=== PATIENT | female | born 1965 | race Caucasian/White ===

== ENCOUNTER 2016-11-04 13:13 | Emergency (ER) | payer BC ==
[2016-11-04 13:33] VITALS: BP 146/93
[2016-11-04] MEDS ORDERED: Sodium Chloride 0.9% 1000 ML 1,000 ML IV SCH (13:45)
--- NOTE | 2016-11-04 14:03 | ERPHSYRPT ---
- History of Present Illness Time Seen by Provider: 11/04/16 13:30 Historian: patient Patient Subjective Stated Complaint: right lower quad abd pain since this morning. took motrin without relief. denies any other symptoms Triage Nursing Assessment: ambulated to room holding right abd. skin w/d, color normal, resp easy. abd soft, tender rlq. normal bowel sounds. Physician History: CC: abd pain hx: 50 y/o patient of Dr Audra Pedro with RLQ abd pain since last night. Was able to eat breakfast. No fever, N/V. Normal urination. Pain moderate and aching in nature. No hx of this in the past. No prior abd surgeries. She declines pain medication. She states wants to get tests to see what is wrong. Quality: aching Abdominal Pain Onset Location: RLQ Severity of Pain-Max: moderate Severity of Pain-Current: moderate Allergies/Adverse Reactions: erythromycin base Allergy (Verified 11/04/16 13:27) metoclopramide [From Reglan] Allergy (Verified 11/04/16 13:27) Sulfa (Sulfonamide Antibiotics) Allergy (Verified 11/04/16 13:27) Home Medications: Ascorbic Acid 500 mg [Vitamin C 500 MG] 500 mg PO DAILY 11/04/16 [History] Cholecalciferol (Vitamin D3) [Vitamin D] 2,000 unit PO DAILY 11/04/16 [History] Cinnamon Bark [Cinnamon] 500 mg PO DAILY 11/04/16 [History] Cyanocobalamin/Folic Acid [Vitamin X87-Wuamq Acid Tablet] 1 each PO DAILY [History] Lysine 1,000 mg PO DAILY 11/04/16 [History] Hx Tetanus, Diphtheria Vaccination/Date Given: Yes (2 yrs ago) Hx Influenza Vaccination/Date Given: No Hx Pneumococcal Vaccination/Date Given: No - Review of Systems Constitutional: Malaise, No Fever, No Chills Eyes: No Symptoms Ears, Nose, & Throat: No Symptoms Respiratory: No Cough, No Dyspnea Cardiac: No Chest Pain Abdominal/Gastrointestinal: Abdominal Pain, No Nausea, No Vomiting, No Diarrhea Genitourinary Symptoms: No Dysuria, No Hematuria Skin: No Rash Neurological: No Headache All Other Systems: Reviewed and Negative - Past Medical History Pertinent Past Medical History: Yes Neurological History: Migraines - Past Surgical History Past Surgical History: Yes Musculoskeletal: Orthopedic Surgery Other Surgical History: shoulder surgery, right and left and knee surgery - Social History Smoking Status: Never smoker Exposure to second hand smoke: No Drug Use: none Patient Lives Alone: No - Nursing Vital Signs Nursing Vital Signs: Initial Vital Signs Temperature 97.2 F Temperature Source Oral Pulse Rate 74 Respiratory Rate 22 Blood Pressure [Right Arm] 146/93 Pain Intensity 4 - Physical Exam General Appearance: alert Eye Exam: PERRL/EOMI Ears, Nose, Throat Exam: moist mucous membranes Neck Exam: normal inspection, non-tender, supple Respiratory Exam: normal breath sounds, lungs clear Cardiovascular Exam: regular rate/rhythm Gastrointestinal/Abdomen Exam: soft, tenderness (right mid abd, no mass) Back Exam: normal inspection, normal range of motion Extremity Exam: normal inspection, normal range of motion Neurologic Exam: alert, oriented x 3, cooperative, sensation nml, No motor deficits Skin Exam: warm, dry, No rash SpO2 Interpretation: normal SpO2: 99 Oxygen Delivery: Room Air - Course Nursing assessment & vital signs reviewed: Yes - CT Exams abd/pelvis CT Interpretation: Tele-radiologist Report (normal appendix, splenic enlargement with cyst, pancreatic cyst, renal cysts, ovarian cyst.) Ordered Tests: Active Orders 24 hr Category Date Time Status Clean Catch Urine Specimen STAT Care 11/04/16 13:38 Active IV Insertion STAT Care 11/04/16 13:38 Active ABDOMEN AND PELVIS W CONTRAST [CT] Stat Exams 11/04/16 13:57 Completed CBC W DIFF Stat Lab 11/04/16 14:02 Completed CMP Stat Lab 11/04/16 14:02 Completed LIPASE Stat Lab 11/04/16 14:02 Completed UA W/ MICROSCOPIC Stat Lab 11/04/16 14:02 Completed Medication Summary Generic Name Dose Route Start Last Admin Trade Name Freq PRN Reason Stop Dose Admin Sodium Chloride 1,000 mls @ 100 mls/hr 11/04/16 13:45 11/04/16 14:33 Sodium Chloride 0.9% 1000 Ml IV 12/04/16 13:44 100 mls/hr .Q10H DAYRON Administration Lab/Rad Data: Laboratory Result Diagrams 11/04/16 14:02 11/04/16 14:02 Laboratory Results 11/04/16 11/04/16 11/04/16 Range/Units 14:02 14:02 14:02 WBC 7.5 (4.0-10.5) K/mm3 RBC 4.70 (4.1-5.4) M/mm3 Hgb 13.8 (12.0-16.0) gm/dl Hct 41.5 (35-47) % MCV 88.3 (78-100) fl MCH 29.4 (26-32) pg MCHC 33.3 (32-36) g/dl RDW 13.8 (11.5-14.0) % Plt Count 230 (150-450) K/mm3 MPV 10.9 H (6-9.5) fl Gran % 61.7 (36.0-66.0) % Lymphocytes % 27.0 (24.0-44.0) % Monocytes % 7.9 (0.0-12.0) % Eosinophils % 3.1 (0.00-5.0) % Basophils % 0.3 (0.0-0.4) % Basophils # 0.02 (0-0.4) Sodium 141 (136-145) mEq/L Potassium 3.7 (3.5-5.1) mEq/L Chloride 106 (98-107) mEq/L Carbon Dioxide 26.8 (21-32) mEq/L Anion Gap 12.3 (5-15) MEQ/L BUN 21 H (9-20) mg/dL Creatinine 1.00 (0.55-1.30) mg/dl Estimated GFR > 60 ML/MIN Glucose 94 (70-110) MG/DL Calcium 9.1 (8.5-10.1) mg/dL Total Bilirubin 0.5 (0.2-1.0) mg/dL AST 18 (15-37) U/L ALT 29 (12-78) U/L Alkaline Phosphatase 100 (46-116) U/L Serum Total Protein 6.8 (6.4-8.2) gm/dL Albumin 4.3 (3.4-5.0) g/dL Lipase 182 (73-393) U/L Ur Collection Type CCMS Urine Color YELLOW (YELLOW) Urine Appearance CLEAR (CLEAR) Urine pH 7.0 (5-6) Ur Specific [place] 1.015 (1.005-1.025) Urine Protein NEGATIVE (Negative) Urine Glucose (UA) NEGATIVE (NEGATIVE) mg/dL Urine Ketones NEGATIVE (NEGATIVE) Urine Nitrite NEGATIVE (NEGATIVE) Urine Bilirubin NEGATIVE (NEGATIVE) Urine Urobilinogen 1 (0-1) mg/dL Urine WBC (Auto) TRACE (NEGATIVE) Urine RBC (Auto) NEGATIVE (0-5) Renaldo/ul Urine Microscopic RBC 0-2 (0-2) /HPF Urine Microscopic WBC 0-2 (0-5) /HPF Ur Epithelial Cells FEW (FEW) /HPF Amorphous Crystals FEW (NEGATIVE) /HPF Urine Bacteria RARE (NEGATIVE) /HPF Specimen Received 11-04-16 1408 - Progress Progress Note: 11/04/16 14:[address] to rule out appendicitis. 11/04/16 15:00 Explained test results with pt. Advised needs ovarian sonogram to assess cyst and needs to consider repeat pancreas CT in 6 months. Advised follow up with Dr Audra Pedro next week to discuss. Counseled pt/family regarding: lab results, diagnosis, need for follow-up, rad results - Departure Time of Disposition: 15:00 Departure Disposition: Home Clinical Impression: Left ovarian cyst, Pancreatic cyst Abdominal pain Qualifiers: Abdominal location: right lower quadrant Qualified Code(s): R10.31 - Right lower quadrant pain Condition: Stable Critical Care Time: No Referrals: SUSSY PEDRO [Primary Care Provider] - Instructions: Abdominal Pain-Adult Additional Instructions: ABDOMINAL PAIN 1. There are several different causes for abdominal pain, some of which may not be able to be identified on initial examination. 2. The important thing to remember is that bodily functions can change in a short period of time. If you notice any of the following symptoms, return to the emergency department or consult your doctor immediately: A. Worsening pain or no improvement in the next 12 hours. B. Increasing, severe abdominal pain C. Blood in stool D. Black stools E. Persistent vomiting F. Fever or chills or other symptoms you need to follow up with Dr Pedro to get ovarian sonogram and consider repeat CT pancreas in 6 months. Prescriptions: Famotidine 20 mg [Pepcid 20 MG] 1 tab PO BID #30 tablet
[2016-11-04 14:05] LABS: BASOPHIL % 0.3 % (0.0-0.4); Eosinophil % 3.1 % (0.00-5.0); Granulocytes % 61.7 % (36.0-66.0); Mean Cell Volume 88.3 fl (78-100); Mean Corpuscular Hemoglobin 29.4 pg (26-32); Mean Platelet Volume 10.9 fl (6-9.5); Monocytes % 7.9 % (0.0-12.0); Platelet Count 230 K/mm3 (150-450); Red Cell Distribution Width 13.8 % (11.5-14.0); White Blood Count 7.5 K/mm3 (4.0-10.5)
[2016-11-04 14:14] LABS: Bacteria RARE /HPF (NEGATIVE); COMPLETE URINE MICROSCOPIC? YES; Collection Type CCMS; Epithelial Cells FEW /HPF (FEW); WBC 0-2 /HPF (0-5)
[2016-11-04 14:28] LABS: ALBUMIN 4.3 g/dL (3.4-5.0); ALKALINE PHOSPHATASE 100 U/L (46-116); ANION GAP 12.3 MEQ/L (5-15); BILIRUBIN,TOTAL 0.5 mg/dL (0.2-1.0); BLOOD UREA NITROGEN 21 mg/dL (9-20); CHLORIDE 106 mEq/L (98-107); Carbon Dioxide 26.8 mEq/L (21-32); Glucose 94 MG/DL (70-110); LIPASE 182 U/L (73-393); Potassium 3.7 mEq/L (3.5-5.1); SGOT/AST 18 U/L (15-37); SGPT/ALT 29 U/L (12-78); SODIUM 141 mEq/L (136-145); Total Protein 6.8 gm/dL (6.4-8.2)
[2016-11-04] MEDS ORDERED: Sodium Chloride 0.9% 1000 ML 1,000 ML ONE (14:31)
[2016-11-04 14:36] VITALS: PULSE 74
[2016-11-04 14:47] VITALS: O2SAT 99
--- NOTE | 2016-11-04 14:54 | XRAY ---
Indication: Right lower quadrant pain. Multiple contiguous axial images obtained through the abdomen and pelvis using 80 cc Isovue 370 contrast only. Comparison: None Lung bases demonstrate minimal bibasilar dependent atelectasis. Heart is not enlarged. Noncontrasted stomach and bowel loops appear nonobstructed. There is moderate scattered colonic fecal debris throughout. Normal appendix. No free fluid/air. 4.2 cm left ovary cyst. Spleen is enlarged measuring 14.1 cm in greatest axial dimension with a 2 cm splenic cyst. 2.2 cm right mid renal and 5 number left mid renal cortical cysts. Tiny 4 mm pancreatic body cyst. Remaining liver, gallbladder, pancreas spleen, adrenal glands, kidneys, ureters, bladder, uterus, and aorta appear unremarkable. No pathologic retroperitoneal lymphadenopathy. Osseous structures intact with mild left SI degenerative changes. Impression: 1. Fecal stasis without obstruction. 2. 4.2 cm left ovary cyst. 3. Splenomegaly with 2 cm cyst. 4. Bilateral renal cysts. 5. Tiny pancreatic body cyst probably benign. Comparison to older studies would be of benefit. If not available consider six-month follow-up. CT DI 20.54
== END 2016-11-04 15:12 ==
LOC: ED 13:13
DX: R10.31 Right lower quadrant pain (principal); N83.202 Unspecified ovarian cyst, left side; K86.2 Cyst of pancreas
CPT/HCPCS: 36000; 36415; 74177; 80053; 81000; 83690; 85025; 96360; 99284

== ENCOUNTER 2022-09-02 14:43 | Emergency (ER) | payer BC, OTHER ==
[2022-09-02 15:00] VITALS: O2SAT 98
[2022-09-02] MEDS ORDERED: PROVENTIL 2.5 MG/3 ML NEB IH ONE ×2 (15:21→15:30)
[2022-09-02] MEDS ORDERED: TORAdol 30 mg Injection IV ONE (15:22)
[2022-09-02] MEDS ORDERED: TORAdol 30 mg Injection ONE (15:33)
[2022-09-02 15:45] LABS: Absolute Neutrophil Ct (ANC) 5.43 x10^3/uL (1.4-6.9); BASOPHIL % 0.3 % (0.0-0.4); Basophil (Absolute #) 0.03 x10^3/uL (0-0.4); Eosinophil % 0.9 % (0.00-5.0); Eosinophil (Absolute #) 0.08 x10^3/uL (0-0.5); Hematocrit 41.2 % (35-47); Hemoglobin 13.3 g/dL (12.0-16.0); IMMATURE GRAN # 0.01 x10^3u/L (0.00-0.03); IMMATURE GRAN % 0.1 % (0.00-0.4); Lymphocyte (Absolute #) 2.74 x10^3/uL (1.0-4.6); Lymphocytes % 30.8 % (24.0-44.0); Mean Cell Volume 90.5 fL (78-100); Mean Corpuscular Hemoglobin 29.2 pg (26-32); Mean Corpuscular Hgb Concent. 32.3 g/dL (32-36); Monocyte (Absolute #) 0.61 x10^3/uL (0.0-1.3); Monocytes % 6.9 % (0.0-12.0); Platelet Count 231 x10^3/uL (150-450); Red Blood Count 4.55 x10^6/uL (4.1-5.4); Red Cell Distribution Width 13.1 % (11.5-14.0); White Blood Count 8.9 x10^3/uL (4.0-10.5)
[2022-09-02 16:01] LABS: ALBUMIN 4.6 g/dL (3.5-5.0); ALKALINE PHOSPHATASE 140 U/L (38-126); ANION GAP 9.8 MEQ/L (5-15); BLOOD UREA NITROGEN 18 mg/dL (7-17); CHLORIDE 106 mmol/L (98-107); Calcium 9.1 mg/dL (8.4-10.2); Carbon Dioxide 23 mmol/L (22-30); Creatinine 1 0.95 mg/dL (0.52-1.04); EST GLOMERULAR FILTRATION RATE > 60.0 ML/MIN; Glucose 89 mg/dL (74-106); Potassium 3.8 mmol/L (3.5-5.1); SGOT/AST 29 U/L (14-36); SGPT/ALT 28 U/L (0-35); SODIUM 135 mmol/L (137-145); Total Protein 7.2 g/dL (6.3-8.2)
[2022-09-02 16:31] VITALS: PULSE 70
--- NOTE | 2022-09-02 16:56 | ERPHSYRPT ---
- History of Present Illness Source: patient, EMS Exam Limitations: no limitations Patient Subjective Stated Complaint: Pt states "I was doing a shakedown and found a bugins bottle and I took the cap off and I smelt it, I also spilled some on my shirt and I got lightheaded and tired and had a headache and my chest was hurting and I thought I needed to get checked out." Triage Nursing Assessment: Pt presented alert and oriented X 3, skin pwd. pt ambulates with an upright steady gait, able to speak in clear full sentences. pt resting comfortably on the bed. 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 Pt inhaled it after she sprayed it. It is unknown what was in the spray bottle. Pt states that her throat became sore and that she became short of breath and actually had a syncopal episode. She currently has a headache. She was decontaminated upon arrival per EMS. Timing/Duration: other (Before arrival) Modifying Factors: Improves With: nothing Associated Symptoms: denies symptoms, nausea, shortness of breath, headaches Allergies/Adverse Reactions: erythromycin base Allergy (Verified 11/04/16 13:27) metoclopramide [From Reglan] Allergy (Verified 11/04/16 13:27) Sulfa (Sulfonamide Antibiotics) Allergy (Verified 11/04/16 13:27) Home Medications: Ascorbic Acid 500 mg [Vitamin C 500 MG] 500 mg PO DAILY 11/04/16 [History] Cholecalciferol (Vitamin D3) [Vitamin D] 2,000 unit PO DAILY 11/04/16 [History] Cyanocobalamin/Folic Acid [Vitamin I39-Ywlje Acid Tablet] 1 each PO DAILY 11/04/16 [History] Lysine 1,000 mg PO DAILY 11/04/16 [History] Escitalopram Oxalate 20 mg PO DAILY 09/02/22 [History] Methylphenidate HCl [Methylphenidate ER] 20 mg PO DAILY 09/02/22 [History] Topiramate 100 mg PO DAILY 09/02/22 [History] modafiniL [Modafinil] 200 mg PO DAILY 09/02/22 [History] Hx Tetanus, Diphtheria Vaccination/Date Given: Yes (2 yrs ago) Hx Influenza Vaccination/Date Given: No Hx Pneumococcal Vaccination/Date Given: No Immunizations Up to Date: Yes Travel Risk - International Travel Have you traveled outside of the country in past 3 weeks: No - Coronavirus Screening Are you exhibiting any of the following symptoms?: No Close contact with a COVID-19 positive Pt in past 14-21 Days: No - Vaccine Status Have you recieved a Covid-19 vaccination: Yes Advertising Editor: Moderna - Vaccination Dates Date of 2cond Vaccination (if applicable): 2020 - Review of Systems Constitutional: No Symptoms Eyes: No Symptoms Ears, Nose, & Throat: No Symptoms Respiratory: No Symptoms, Dyspnea Cardiac: No Symptoms Abdominal/Gastrointestinal: No Symptoms, Nausea, Vomiting Genitourinary Symptoms: No Symptoms Musculoskeletal: No Symptoms Skin: No Symptoms Neurological: No Symptoms, Headache Psychological: No Symptoms Endocrine: No Symptoms Hematologic/Lymphatic: No Symptoms Immunological/Allergic: No Symptoms - Past Medical History Pertinent Past Medical History: Yes Neurological History: Migraines Cardiac History: Hypertension Respiratory History: No Pertinent History Endocrine Medical History: No Pertinent History Musculoskeletal History: Osteoarthritis Other Medical History: NARCOLEPSY - Past Surgical History Past Surgical History: Yes Musculoskeletal: Orthopedic Surgery Other Surgical History: r shoulder surgery, right and left and knee surgery. right bicep - Social History Smoking Status: Never smoker Exposure to second hand smoke: No Drug Use: none Patient Lives Alone: No - Nursing Vital Signs Nursing Vital Signs: Initial Vital Signs Temperature 98.8 F 09/02/22 14:51 Pulse Rate 74 09/02/22 14:51 Respiratory Rate 20 09/02/22 14:51 Blood Pressure 162/104 09/02/22 14:51 O2 Sat by Pulse Oximetry 98 09/02/22 14:51 Pain Scale Pain Intensity 0 Hypertensive - Physical Exam General Appearance: no apparent distress Eye Exam: PERRL/EOMI, eyes nml inspection Ears, Nose, Throat Exam: normal ENT inspection, TMs normal, pharynx normal, moist mucous membranes Neck Exam: normal inspection, non-tender, supple, full range of motion, No meningismus, No mass, No Brudzinski, No Kernig's Respiratory Exam: normal breath sounds, lungs clear, airway intact, No respiratory distress Cardiovascular Exam: regular rate/rhythm, normal heart sounds, normal peripheral pulses, capillary refill <2 sec, No murmur Gastrointestinal/Abdomen Exam: soft, normal bowel sounds Back Exam: normal inspection, normal range of motion Extremity Exam: normal inspection, normal range of motion Neurologic Exam: alert, oriented x 3, cooperative, business banker II-XII nml as tested, normal mood/affect, nml cerebellar function, nml station & gait, sensation nml Skin Exam: normal color, warm, dry Lymphatic Exam: No adenopathy SpO2 Interpretation: normal SpO2: 98 O2 Delivery: Room Air - Course Nursing assessment & vital signs reviewed: Yes EKG Interpreted by Me: RATE (NSR/Rate 68/Normal QT-QTc/No acute ST segment changes/Normal Twaves) Ordered Tests: Active Orders 24 hr Category Date Time Status EKG-ER Only STAT Care 09/02/22 15:21 Completed CBC W DIFF Stat Lab 09/02/22 15:44 Completed CMP Stat Lab 09/02/22 15:44 Completed TROPONIN Q4H Lab 09/02/22 15:44 Completed Respiratory Therapy Assessment DAILY RT 09/02/22 17:00 Completed Medication Summary Discontinued Medications Generic Name Dose Route Start Last Admin Trade Name Марина PRN Reason Stop Dose Admin Albuterol Sulfate 2.5 mg 09/02/22 15:21 09/02/22 15:30 Albuterol Sulfate 2.5 Mg/3 Ml Neb IH 09/02/22 15:22 2.5 mg STAT ONE Administration Albuterol Sulfate Confirm 09/02/22 15:30 Albuterol Sulfate 2.5 Mg/3 Ml Neb Administered 09/02/22 15:31 Dose 2.5 mg IH .STK-MED ONE Ketorolac Tromethamine 15 mg 09/02/22 15:22 09/02/22 15:34 Ketorolac Tromethamine 30 Mg/Ml Inj IV 09/02/22 15:23 15 mg STAT ONE Administration Ketorolac Tromethamine Confirm 09/02/22 15:33 Ketorolac Tromethamine 30 Mg/Ml Inj Administered 09/02/22 15:34 Dose 30 mg .ROUTE .STK-MED ONE Lab/Rad Data: Laboratory Result Diagrams 09/02/22 15:44 09/02/22 15:44 Laboratory Results 09/02/22 09/02/22 09/02/22 Range/Units 15:44 15:44 15:44 WBC 8.9 (4.0-10.5) x10^3/uL RBC 4.55 (4.1-5.4) x10^6/uL Hgb 13.3 (12.0-16.0) g/dL Hct 41.2 (35-47) % MCV 90.5 (78-100) fL MCH 29.2 (26-32) pg MCHC 32.3 (32-36) g/dL RDW 13.1 (11.5-14.0) % Plt Count 231 (150-450) x10^3/uL MPV 10.0 (7.5-11.0) fL Gran % 61.0 (36.0-66.0) % Immature Gran % (Auto) 0.1 (0.00-0.4) % Nucleat RBC Rel Count 0.0 (0.00-0.1) % Eos # (Auto) 0.08 (0-0.5) x10^3/uL Immature Gran # (Auto) 0.01 (0.00-0.03) x10^3u/L Absolute Lymphs (auto) 2.74 (1.0-4.6) x10^3/uL Absolute Monos (auto) 0.61 (0.0-1.3) x10^3/uL Absolute Nucleated RBC 0.00 (0.00-0.01) x10^3u/L Lymphocytes % 30.8 (24.0-44.0) % Monocytes % 6.9 (0.0-12.0) % Eosinophils % 0.9 (0.00-5.0) % Basophils % 0.3 (0.0-0.4) % Absolute Granulocytes 5.43 (1.4-6.9) x10^3/uL Basophils # 0.03 (0-0.4) x10^3/uL Sodium 135 L (137-145) mmol/L Potassium 3.8 (3.5-5.1) mmol/L Chloride 106 (98-107) mmol/L Carbon Dioxide 23 (22-30) mmol/L Anion Gap 9.8 (5-15) MEQ/L BUN 18 H (7-17) mg/dL Creatinine 0.95 (0.52-1.04) mg/dL Estimated GFR > 60.0 ML/MIN Glucose 89 (74-106) mg/dL Calcium 9.1 (8.4-10.2) mg/dL Total Bilirubin 0.40 (0.2-1.3) mg/dL AST 29 (14-36) U/L ALT 28 (0-35) U/L Alkaline Phosphatase 140 H (38-126) U/L Troponin I < 0.012 (0.000-0.034) ng/mL Serum Total Protein 7.2 (6.3-8.2) g/dL Albumin 4.6 (3.5-5.0) g/dL - Progress Progress: improved Progress Note: 09/02/22 17:01 Nursing note and vital signs reviewed Additional history through EMS EKG and lab results reviewed and shared w pt No housing or food insecurities noted Pt's headache improved w IV Toradol States that dyspnea improved w albuterol neb No evidence of ectopy, focal weakness, or respiratory distress in ER 09/02/22 17:04 Counseled pt/family regarding: lab results, diagnosis, need for follow-up Medical Desision Making - Independent Historian Additional History obtained from: EMS - Diagnostic Testing Diagnostic Testing: Diagnostic tests were ordered,analyzed, and reviewed by me and used in my medical decision making for this patient. Radiologic studies (if ordered) were read by me initially then discussed with the radiologist . - Risk of complications Low Risk: Low risk of morbidity from additional dx testing or treatment - Departure Departure Disposition: Home Clinical Impression: Inhalation injury Condition: Stable Critical Care Time: No Referrals: BLOSSOM BRIZUELA MD [Primary Care Provider] - Follow up/PCP as directed Instructions: Chemical Ingestion (DC) Additional Instructions: Use your albuterol inhaler every 4 hours as needed Return to ER for any new signs/symptoms Follow up as needed
[2022-09-02 17:10] VITALS: BP 160/88
== END 2022-09-02 17:17 | disposition home or self-care (01) ==
LOC: ED 14:43
DX: T59.91XA Toxic effect of unspecified gases, fumes and vapors, accidental (unintentional), initial encounter (principal); R06.02 Shortness of breath; Y92.143 Cell of prison as the place of occurrence of the external cause; Y99.0 Civilian activity done for income or pay; J02.9 Acute pharyngitis, unspecified; R55 Syncope and collapse; R51.9 Headache, unspecified; I10 Essential (primary) hypertension; Z79.899 Other long term (current) drug therapy
CPT/HCPCS: 36415; 80053; 84484; 85025; 93005; 94640; 99283; J1885; J7609; A9270-GY

== ENCOUNTER 2023-04-30 01:59 | Emergency (ER) | payer BC ==
[2023-04-30 02:21] VITALS: RESP 18; TEMP 97; O2SAT 98
[2023-04-30] MEDS ORDERED: TORAdol 30 mg Injection IM ONE (02:25)
[2023-04-30] MEDS ORDERED: Norflex 60 MG/2 ML IM ONE (02:25)
[2023-04-30] MEDS ORDERED: TORAdol 30 mg Injection ONE (02:30)
[2023-04-30] MEDS ORDERED: Norflex 60 MG/2 ML ONE (02:30)
--- NOTE | 2023-04-30 02:30 | ERPHSYRPT ---
- History of Present Illness Time Seen by Provider: 04/30/23 02:26 Source: patient Exam Limitations: no limitations Patient Subjective Stated Complaint: pt states that she was at her son's house and went to step off the step and twisted her ankle. pt states that she was seen in a er and was told that her foot was just sprained. pt states that the pain is worse Triage Nursing Assessment: pt came into the er via wheelchair; pt transferred self to cot; c/o rt foot pain; mild swelling present to rt ankle; no bruising present to rt foot; good ROM to rt foot; strong rt pedal pulse; good cap refill to rt foot; abrasion present to dorsal rt foot; no respiratory distress present; hypertension Physician History: pt states that she was at her son's house and went to step off the step and twisted her ankle. pt states that she was seen in a er and was told that her foot was just sprained. pt states that the pain is worse Method of Injury: fell Occurred: yesterday Quality: constant Severity of Pain-Max: moderate Severity of Pain-Current: moderate Lower Extremities Pain: foot: right Modifying Factors: Improves With: nothing Associated Symptoms: unable to bear weight Allergies/Adverse Reactions: erythromycin base Allergy (Verified 04/30/23 02:06) metoclopramide [From Reglan] Allergy (Verified 04/30/23 02:06) Sulfa (Sulfonamide Antibiotics) Allergy (Verified 04/30/23 02:06) Home Medications: Cholecalciferol (Vitamin D3) [Vitamin D] 2,000 unit PO DAILY 11/04/16 [History] Cyanocobalamin/Folic Acid [Vitamin W06-Jwtzp Acid Tablet] 1 each PO DAILY 10/22 11/07 [History] Lysine 1,000 mg PO DAILY 11/04/16 [History] Escitalopram Oxalate 20 mg PO DAILY 09/02/22 [History] Methylphenidate HCl [Methylphenidate ER] 20 mg PO DAILY 09/02/22 [History] Topiramate 100 mg PO DAILY 09/02/22 [History] Amlodipine Besylate [Norvasc] 5 mg PO DAILY 04/30/23 [History] Solriamfetol HCl [Sunosi] 150 mg PO DAILY 04/30/23 [History] Hx Tetanus, Diphtheria Vaccination/Date Given: Yes (2014) Hx Influenza Vaccination/Date Given: Yes (2021) Hx Pneumococcal Vaccination/Date Given: Yes (2021) Travel Risk - International Travel Have you traveled outside of the country in past 3 weeks: No - Coronavirus Screening Are you exhibiting any of the following symptoms?: No Close contact with a COVID-19 positive Pt in past 14-21 Days: No - Vaccine Status Have you recieved a Covid-19 vaccination: 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 - Vaccination Dates Date of 2cond Vaccination (if applicable): 2020 - Review of Systems Constitutional: No Symptoms Eyes: No Symptoms Ears, Nose, & Throat: No Symptoms Respiratory: No Symptoms Cardiac: No Symptoms Abdominal/Gastrointestinal: No Symptoms Genitourinary Symptoms: No Symptoms Musculoskeletal: Fall, Joint Pain (right foot arch) - Past Medical History Pertinent Past Medical History: Yes Neurological History: Migraines Cardiac History: Hypertension Respiratory History: No Pertinent History Endocrine Medical History: No Pertinent History Musculoskeletal History: Osteoarthritis GI Medical History: GERD Psycho-Social History: Depression Other Medical History: NARCOLEPSY - Past Surgical History Past Surgical History: Yes Musculoskeletal: Orthopedic Surgery Other Surgical History: r shoulder surgery, right and left and knee surgery. right bicep - Social History Smoking Status: Never smoker Exposure to second hand smoke: No Drug Use: none Patient Lives Alone: No - Nursing Vital Signs Nursing Vital Signs: Initial Vital Signs Pulse Rate 62 04/30/23 02:06 Blood Pressure 155/99 04/30/23 02:06 O2 Sat by Pulse Oximetry 97 04/30/23 02:06 Pain Scale Pain Intensity 6 - Physical Exam General Appearance: no apparent distress Eyes, Ears, Nose, Throat Exam: normal ENT inspection Neck Exam: normal inspection Cardiovascular/Respiratory Exam: chest non-tender Gastrointestinal/Abdominal Exam: non-tender Back Exam: normal inspection Hips Exam: bilateral: non-tender Legs Exam: bilateral leg: non-tender Knees Exam: bilateral knee: non-tender Ankle Exam: right ankle: limited range of motion, pain, soft tissue tenderness Foot Exam: right foot: pain, soft tissue tenderness Neuro/Tendon Exam: normal sensation, normal motor functions, normal tendon functions Mental Status Exam: alert, oriented x 3 Skin Exam: normal color SpO2 Interpretation: normal SpO2: 98 O2 Delivery: Room Air Procedures - Splinting Time of Procedure: 02:28 Location of Splint: Right, Foot Type of Splint: Walking Boot/Shoe Splint Applied By: ED Nurse Pre-Proc Neuro Vasc Exam: normal - Course Nursing assessment & vital signs reviewed: Yes Ordered Tests: Active Orders 24 hr Category Date Time Status Splint STAT Care 04/30/23 02:25 Active - Progress Progress: improved, pain not gone completely Counseled pt/family regarding: diagnosis, need for follow-up - Departure Departure Disposition: Home Clinical Impression: Right foot sprain Qualifiers: Encounter type: subsequent encounter Qualified Code(s): S93.601D - Unspecified sprain of right foot, subsequent encounter Condition: Stable Critical Care Time: No Referrals: BLOSSOM BRIZUELA MD [Primary Care Provider] - Follow up/PCP as directed Instructions: Contusion (DC), Foot Sprain (DC) Additional Instructions: Discharge/Care Plan SEVERIANO BOJORQUEZ was seen on 04/30/23 in the Emergency Room. The patient was counseled regarding Diagnosis,Lab results, Imaging studies, need for follow up and when to return to the Emergency Room. Prescriptions given: Discharge Note I have spoken with the patient and/or caregivers. I have explained the patient's condition, diagnosis and treatment plan based on the information available to me at this time. I have answered the patient's and/or caregiver's questions and addressed any concerns. The patient and/or caregivers have as good understanding of the patient's diagnosis, condition and treatment plan as can be expected at this point. The vital signs have been stable. The patient's condition is stable and appropriate for discharge from the emergency department. The patient will pursue further outpatient evaluation with the primary care physician or other designated or consulting physician as outlined in the discharge instructions. The patient and/or caregivers are agreeable to this plan of care and follow-up instructions have been explained in detail. The patient and/or caregivers have received these instruction. The patient/and or caregivers are aware that any significant change in condition or worsening of symptoms should prompt an immediate return to this or the closest emergency department or call 911. SEVERIANO BOJORQUEZ was seen on 04/30/23 n the Emergency Room. At that time you were treated for an emergent condition, during your visit Laboratory, Radiology and/or other procedures may have been ordered. It is very important that you follow-up with your Primary Care Physician BLOSSOM BRIZUELA within the next 24-48 hours to review your Emergency Room visit and the final results of testing that was ordered. Some test results such as Urine Cultures, Blood Cultures, and other cultures if ordered will not be finalized for 24-48 hours. If you do not have a Primary Care Provider please call the medical records department at [phone] ext [phone] to obtain a copy of your results or you may sign into our patient portal to obtain these results by visiting us @ [email or web address] and completing the following steps: 1. Click on the Patient Portal link 2. Click the Patient Self Enrollment Link to complete the enrollment form and entering your 3. Once the enrollment form is completed you will receive an email with a temporary ID and password at the email address you provided. 4. Next choose a user name and password. Your user name must be at least 4 characters long and your password must be at least 4 characters long. 5. Choose a security question from the list and provide your answer to the question. If you already have signed into the Health Portal you may access your Health Care Information 13/02 by the following steps: 1. Login to our website @ [email or web address] 2. Enter your original user name and password. FAQS The [facility] Health Portal is an online tool that contains your Lab Results, Radiology Reports, Visit History, Discharge Instructions and Health Summary Lab and Radiology Results will not be available for 72 hours on the portal. The Portal is a secure site, passwords are encryted and URLs are re-written so they cannot be copied and pasted. You and authorized family members are the only ones who can access your Portal. Also there is a timeout feature that protects your information if you leave the Portal page open. If you have technical difficulty please use the Contact Us link on the page this will allow you to submit any questions you have regarding the Portal or you may contact the Medical Record Department at [phone]. Prescriptions: Naproxen 375 mg [Naprosyn 375 mg] 375 mg PO Q8H #30 tablet
[2023-04-30 03:32] VITALS: BP 142/78; PULSE 74
== END 2023-04-30 03:25 | disposition home or self-care (01) ==
LOC: ED 01:59
DX: S93.601A Unspecified sprain of right foot, initial encounter (principal); X50.0XXA Overexertion from strenuous movement or load, initial encounter; I10 Essential (primary) hypertension; Z79.899 Other long term (current) drug therapy
CPT/HCPCS: 96372; 99283; J1885; J2360; L4386

== ENCOUNTER 2023-08-03 10:44 | Emergency (ER) | payer BC ==
[2023-08-03] MEDS ORDERED: Sodium Chloride 0.9% 1000 ML 0 ML ONE (11:01)
[2023-08-03] MEDS ORDERED: SUBLIMAZE 100 MCG/2 ML IV ONE ×2 (11:11→14:34)
[2023-08-03] MEDS ORDERED: PROTONIX 40 MG IV IV ONE ×2 (11:11→11:46)
[2023-08-03] MEDS ORDERED: Sodium Chloride 0.9% 1000 ML 1,000 ML IV STA ×2 (11:11→12:04)
[2023-08-03] MEDS ORDERED: Zofran 4 MG/2 ML VIAL IV ONE (11:11)
[2023-08-03 11:12] VITALS: TEMP 98
[2023-08-03 11:19] LABS: Absolute Neutrophil Ct (ANC) 19.03 x10^3/uL (1.4-6.9); BASOPHIL % 0.2 % (0.0-0.4); Basophil (Absolute #) 0.04 x10^3/uL (0-0.4); Eosinophil % 0.2 % (0.00-5.0); Eosinophil (Absolute #) 0.04 x10^3/uL (0-0.5); Hematocrit 38.8 % (35-47); Hemoglobin 13.1 g/dL (12.0-16.0); IMMATURE GRAN # 0.24 x10^3u/L (0.00-0.03); Lymphocyte (Absolute #) 1.27 x10^3/uL (1.0-4.6); Lymphocytes % 5.5 % (24.0-44.0); Mean Cell Volume 83.6 fL (78-100); Mean Corpuscular Hemoglobin 28.2 pg (26-32); Mean Corpuscular Hgb Concent. 33.8 g/dL (32-36); Mean Platelet Volume 10.8 fL (7.5-11.0); Monocyte (Absolute #) 2.28 x10^3/uL (0.0-1.3); Neutrophil % 83.1 % (36.0-66.0); Platelet Count 241 x10^3/uL (150-450); Red Blood Count 4.64 x10^6/uL (4.1-5.4); Red Cell Distribution Width 12.8 % (11.5-14.0); White Blood Count 22.9 x10^3/uL (4.0-10.5)
--- NOTE | 2023-08-03 11:20 | ERPHSYRPT ---
- History of Present Illness Time Seen by Provider: 08/03/23 11:11 Historian: patient Exam Limitations: no limitations Patient Subjective Stated Complaint: pt c/o of nancy abd pain since 8 days ago with vomiting Triage Nursing Assessment: Pt brought self to the ER, a-fib with RVR, rates pain as 8/10, pt c/o of abd pain, back pain that radiates up her neck, denies chest pain, skin n/w/d, vomiting, denies diarrhea, has not had a bowel movement in 8 days but states that she has barely eaten anything, denies difficulty with breathing, pulses are irregular, walked to the ER room with a stable gait Physician History: 57 years old female in the ER with chief complaint of generalized abdominal pain more in the periumbilical area with radiation/wrapping around to the back 8/10 intensity for the last 8 to 10 days with associated multiple episodes of nonprojectile, nonbilious vomiting with inability to hold much down. Denies any diarrhea or constipation. Patient reports she has decreased urine output despite drinking frequently. She feels weak fatigued tired and dehydrated. Denies any chest pain or palpitations. Patient's heart rate is in 140s and 160s but denies any chest pressure or pain or difficulty breathing. Denies any known sick contact. EKG is atrial fibrillation at rate in 140s. Allergies/Adverse Reactions: erythromycin base Allergy (Verified 08/03/23 11:12) metoclopramide [From Reglan] Allergy (Verified 08/03/23 11:12) Sulfa (Sulfonamide Antibiotics) Allergy (Verified 08/03/23 11:12) Home Medications: Cholecalciferol (Vitamin D3) [Vitamin D] 2,000 unit PO DAILY 11/04/16 [History] Cyanocobalamin/Folic Acid [Vitamin E88-Fclja Acid Tablet] 1 each PO DAILY 11/04/16 [History] Lysine 1,000 mg PO DAILY 11/04/16 [History] Escitalopram Oxalate 20 mg PO DAILY 09/02/22 [History] Methylphenidate HCl [Methylphenidate ER] 20 mg PO DAILY 09/02/22 [History] Topiramate 100 mg PO DAILY 09/02/22 [History] Amlodipine Besylate [Norvasc] 5 mg PO DAILY 04/30/23 [History] Solriamfetol HCl [Sunosi] 150 mg PO DAILY 04/30/23 [History] Hx Tetanus, Diphtheria Vaccination/Date Given: Yes (2014) Hx Influenza Vaccination/Date Given: Yes (2021) Hx Pneumococcal Vaccination/Date Given: Yes (2021) Travel Risk - International Travel Have you traveled outside of the country in past 3 weeks: No - Coronavirus Screening Are you exhibiting any of the following symptoms?: Yes Symptoms: Vomiting/Diarrhea Close contact with a COVID-19 positive Pt in past 14-21 Days: No - Vaccine Status Have you recieved a Covid-19 vaccination: Yes Founding Partner: Moderna - Vaccination Dates Date of 2cond Vaccination (if applicable): 2020 - Review of Systems Constitutional: Fatigue, Weakness Eyes: No Symptoms Ears, Nose, & Throat: No Symptoms Respiratory: No Symptoms Cardiac: No Symptoms Abdominal/Gastrointestinal: Abdominal Pain, Nausea, Vomiting Genitourinary Symptoms: No Symptoms Musculoskeletal: Back Pain Skin: No Symptoms Neurological: No Symptoms Psychological: No Symptoms Hematologic/Lymphatic: No Symptoms Immunological/Allergic: No Symptoms - Past Medical History Pertinent Past Medical History: Yes Neurological History: Migraines Cardiac History: Hypertension Respiratory History: No Pertinent History Endocrine Medical History: No Pertinent History Musculoskeletal History: Osteoarthritis GI Medical History: GERD Psycho-Social History: Depression Other Medical History: NARCOLEPSY - Past Surgical History Past Surgical History: Yes Musculoskeletal: Orthopedic Surgery Other Surgical History: r shoulder surgery, right and left and knee surgery. right bicep - Social History Smoking Status: Never smoker Exposure to second hand smoke: No Drug Use: none Patient Lives Alone: No - Nursing Vital Signs Nursing Vital Signs: Initial Vital Signs Temperature 98.0 F 08/03/23 10:49 Pulse Rate 99 H 08/03/23 10:49 Respiratory Rate 25 H 08/03/23 10:49 Blood Pressure 152/85 08/03/23 10:49 O2 Sat by Pulse Oximetry 98 08/03/23 10:49 Pain Scale Pain Intensity 0 - Physical Exam General Appearance: no apparent distress Eye Exam: PERRL/EOMI Ears, Nose, Throat Exam: normal ENT inspection Neck Exam: normal inspection, non-tender, supple, full range of motion Respiratory Exam: normal breath sounds, lungs clear Cardiovascular Exam: normal heart sounds, tachycardia Gastrointestinal/Abdomen Exam: soft, normal bowel sounds, tenderness (Periumbilical/upper abdomen), guarding Back Exam: normal inspection Extremity Exam: normal inspection, normal range of motion, pelvis stable Neurologic Exam: alert, oriented x 3, cooperative, 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 Skin Exam: normal color SpO2 Interpretation: normal SpO2: 98 O2 Delivery: Room Air - Course Nursing assessment & vital signs reviewed: Yes EKG Interpreted by Me: RATE (139), A-fib, NORMAL AXIS, NORMAL INTERVALS, Non- specific ST Changes Ordered Tests: Active Orders 24 hr Category Date Time Status EKG-ER Only STAT Care 08/03/23 11:11 Active IV Insertion STAT Care 08/03/23 11:11 Active NPO (ED) STAT Care 08/03/23 11:11 Active Telemetry q4h Care 08/03/23 12:03 Active ABDOMEN AND PELVIS W/0 CONTRAS [CT] Stat Exams 08/03/23 12:04 Completed CHEST 1 VIEW (PORTABLE) Stat Exams 08/03/23 11:11 Completed BLOOD CULTURE Stat Lab 08/03/23 11:46 Received CBC W DIFF Stat Lab 08/03/23 11:17 Completed CMP Stat Lab 08/03/23 11:17 Completed CULTURE,URINE Stat Lab 08/03/23 11:17 Received LIPASE Stat Lab 08/03/23 11:17 Completed Lactic Acid Stat Lab 08/03/23 11:18 Completed MAGNESIUM Stat Lab 08/03/23 11:17 Completed PROCALCITONIN Stat Lab 08/03/23 11:17 Completed TROPONIN Q4H Lab 08/03/23 11:17 Completed TROPONIN Q4H Lab 08/03/23 15:15 Ordered TROPONIN Q4H Lab 08/03/23 19:15 Ordered TSH, 3RD Generation Stat Lab 08/03/23 11:17 Completed UA W/RFX UR CULTURE Stat Lab 08/03/23 11:17 Completed Medication Summary Generic Name Dose Route Start Last Admin Trade Name Freq PRN Reason Stop Dose Admin Potassium Chloride 20 meq in 100 mls @ 50 mls/hr 08/03/23 12:15 08/03/23 12:46 Potassium Chloride 20 Meq In Water 100ml IV 08/03/23 16:14 50 mls/hr Q2H DAYRON Administration Diltiazem HCl 100 mls @ 5 mls/hr 08/03/23 14:17 Cardizem Drip 100 Mg/100 Ml D5w IV 09/02/23 14:16 .Q20H PRN HEART RATE/ A-FIB Protocol 5 MG/HR Discontinued Medications Generic Name Dose Route Start Last Admin Trade Name Марина PRN Reason Stop Dose Admin Fentanyl Citrate 50 mcg 08/03/23 11:11 08/03/23 11:58 Fentanyl Citrate 100 Mcg/2 Ml* Vial IV 08/03/23 11:12 50 mcg STAT ONE Administration Fentanyl Citrate Confirm 08/03/23 11:48 Fentanyl Citrate 100 Mcg/2 Ml* Vial Administered 08/03/23 11:49 Dose 100 mcg .ROUTE .STK-MED ONE Fentanyl Citrate 50 mcg 08/03/23 14:34 Fentanyl Citrate 100 Mcg/2 Ml* Vial IV 08/03/23 14:35 STAT ONE Sodium Chloride Confirm 08/03/23 11:01 Sodium Chloride 0.9% 1000 Ml Administered 08/03/23 11:02 Dose 1,000 mls @ ud .ROUTE .STK-MED ONE Sodium Chloride 1,000 mls @ 999 mls/hr 08/03/23 11:11 08/03/23 13:25 Sodium Chloride 0.9% 1000 Ml IV 08/03/23 12:11 Infused .Q1H1M STA Infusion Sodium Chloride Confirm 08/03/23 11:48 Sodium Chloride 0.9% 1000 Ml Administered 08/03/23 11:49 Dose 1,000 mls @ ud .ROUTE .STK-MED ONE Ceftriaxone Sodium/Dextrose 2 g in 50 mls @ 100 mls/hr 08/03/23 12:03 4 13:25 Rocephin 2 Gm-D5w 50ml Bag IV 08/03/23 12:32 Infused STAT STA Infusion Sodium Chloride 1,000 mls @ 999 mls/hr 08/03/23 12:04 08/03/23 13:49 Sodium Chloride 0.9% 1000 Ml IV 08/03/23 13:04 Infused .Q1H1M STA Infusion Sodium Chloride Confirm 08/03/23 12:22 Sodium Chloride 0.9% 1000 Ml Administered 08/03/23 12:23 Dose 1,000 mls @ ud .ROUTE .STK-MED ONE Ceftriaxone Sodium/Dextrose Confirm 08/03/23 12:23 Rocephin 2 Gm-D5w 50ml Bag Administered 08/03/23 12:24 Dose 2 g in 50 mls @ ud IV .STK-MED ONE Ondansetron HCl 4 mg 08/03/23 11:11 08/03/23 11:54 Ondansetron Hcl 4 Mg/2 Ml Vial IV 08/03/23 11:12 4 mg STAT ONE Administration Ondansetron HCl Confirm 08/03/23 11:46 Ondansetron Hcl 4 Mg/2 Ml Vial Administered 08/03/23 11:47 Dose 4 mg .ROUTE .STK-MED ONE Pantoprazole Sodium 40 mg 08/03/23 11:11 08/03/23 12:03 Pantoprazole 40 Mg Vial IV 08/03/23 11:12 40 mg STAT ONE Administration Pantoprazole Sodium Confirm 08/03/23 11:46 Pantoprazole 40 Mg Vial Administered 08/03/23 11:47 Dose 40 mg IV .STK-MED ONE Lab/Rad Data: Laboratory Result Diagrams 08/03/23 11:17 08/03/23 11:17 Laboratory Results 08/03/23 08/03/23 08/03/23 Range/Units 11:30 11:18 11:17 WBC (4.0-10.5) x10^3/uL RBC (4.1-5.4) x10^6/uL Hgb (12.0-16.0) g/dL Hct (35-47) % MCV (78-100) fL MCH (26-32) pg MCHC (32-36) g/dL RDW (11.5-14.0) % Plt Count (150-450) x10^3/uL MPV (7.5-11.0) fL Gran % (36.0-66.0) % Immature Gran % (Auto) (0.00-0.4) % Nucleat RBC Rel Count (0.00-0.1) % Eos # (Auto) (0-0.5) x10^3/uL Immature Gran # (Auto) (0.00-0.03) x10^3u/L Absolute Lymphs (auto) (1.0-4.6) x10^3/uL Absolute Monos (auto) (0.0-1.3) x10^3/uL Absolute Nucleated RBC (0.00-0.01) x10^3u/L Lymphocytes % (24.0-44.0) % Monocytes % (0.0-12.0) % Eosinophils % (0.00-5.0) % Basophils % (0.0-0.4) % Absolute Granulocytes (1.4-6.9) x10^3/uL Basophils # (0-0.4) x10^3/uL Sodium (137-145) mmol/L Potassium (3.5-5.1) mmol/L Chloride (98-107) mmol/L Carbon Dioxide (22-30) mmol/L Anion Gap (5-15) MEQ/L BUN (7-17) mg/dL Creatinine (0.52-1.04) mg/dL Estimated GFR ML/MIN Glucose (74-106) mg/dL Lactic Acid 1.7 (0.4-2.0) Calcium (8.4-10.2) mg/dL Magnesium (1.6-2.3) mg/dL Total Bilirubin (0.2-1.3) mg/dL AST (14-36) U/L ALT (0-35) U/L Alkaline Phosphatase (38-126) U/L Troponin I (0.000-0.034) ng/mL Serum Total Protein (6.3-8.2) g/dL Albumin (3.5-5.0) g/dL Lipase (23-300) U/L Procalcitonin (0.030-0.080) ng/mL Free T4 6.54 H (0.78-2.19) ng/dL TSH 3rd Generation (0.47-4.68) mIU/L Urine Color (Yellow) Urine Appearance (Clear) Urine pH (4.6-8.0) Ur Specific [place] (1.005-1.030) Urine Protein (Negative) Urine Glucose (UA) (Negative) mg/dL Urine Ketones (Negative) Urine Blood (Negative) Urine Nitrite (Negative) Urine Bilirubin (Negative) Urine Urobilinogen (0.2) mg/dL Ur Leukocyte Esterase (Negative) U Hyaline Cast (Auto) (0-2) /LPF Urine Microscopic RBC (0-5) /HPF Urine Microscopic WBC (0-5) /HPF Ur Epithelial Cells (None Seen) /HPF Urine Bacteria (None Seen) /HPF Urine Culture Reflexed (NO) Influenza Type A Ag NEGATIVE (NEGATIVE) Influenza Type B Ag NEGATIVE (NEGATIVE) RSV (PCR) NEGATIVE (NEGATIVE) SARS-CoV-2 (PCR) NEGATIVE (NEGATIVE) Slides for Path Review 08/03/23 08/03/23 08/03/23 Range/Units 11:17 11:17 11:17 WBC 22.9 H (4.0-10.5) x10^3/uL RBC 4.64 (4.1-5.4) x10^6/uL Hgb 13.1 (12.0-16.0) g/dL Hct 38.8 (35-47) % MCV 83.6 (78-100) fL MCH 28.2 (26-32) pg MCHC 33.8 (32-36) g/dL RDW 12.8 (11.5-14.0) % Plt Count 241 (150-450) x10^3/uL MPV 10.8 (7.5-11.0) fL Gran % 83.1 H (36.0-66.0) % Immature Gran % (Auto) 1.0 H (0.00-0.4) % Nucleat RBC Rel Count 0.0 (0.00-0.1) % Eos # (Auto) 0.04 (0-0.5) x10^3/uL Immature Gran # (Auto) 0.24 H (0.00-0.03) x10^3u/L Absolute Lymphs (auto) 1.27 (1.0-4.6) x10^3/uL Absolute Monos (auto) 2.28 H (0.0-1.3) x10^3/uL Absolute Nucleated RBC 0.00 (0.00-0.01) x10^3u/L Lymphocytes % 5.5 L (24.0-44.0) % Monocytes % 10.0 (0.0-12.0) % Eosinophils % 0.2 (0.00-5.0) % Basophils % 0.2 (0.0-0.4) % Absolute Granulocytes 19.03 H (1.4-6.9) x10^3/uL Basophils # 0.04 (0-0.4) x10^3/uL Sodium 134 L (137-145) mmol/L Potassium 2.8 L* (3.5-5.1) mmol/L Chloride 101 (98-107) mmol/L Carbon Dioxide 20 L (22-30) mmol/L Anion Gap 15.0 (5-15) MEQ/L BUN 40 H (7-17) mg/dL Creatinine 1.88 H (0.52-1.04) mg/dL Estimated GFR 30.6 ML/MIN Glucose 143 H (74-106) mg/dL Lactic Acid (0.4-2.0) Calcium 9.6 (8.4-10.2) mg/dL Magnesium 2.2 (1.6-2.3) mg/dL Total Bilirubin 1.40 H (0.2-1.3) mg/dL AST 51 H (14-36) U/L ALT 76 H (0-35) U/L Alkaline Phosphatase 190 H (38-126) U/L Troponin I < 0.012 (0.000-0.034) ng/mL Serum Total Protein 6.9 (6.3-8.2) g/dL Albumin 3.7 (3.5-5.0) g/dL Lipase 108 (23-300) U/L Procalcitonin 5.140 H* (0.030-0.080) ng/mL Free T4 (0.78-2.19) ng/dL TSH 3rd Generation < 0.015 L (0.47-4.68) mIU/L Urine Color (Yellow) Urine Appearance (Clear) Urine pH (4.6-8.0) Ur Specific [place] (1.005-1.030) Urine Protein (Negative) Urine Glucose (UA) (Negative) mg/dL Urine Ketones (Negative) Urine Blood (Negative) Urine Nitrite (Negative) Urine Bilirubin (Negative) Urine Urobilinogen (0.2) mg/dL Ur Leukocyte Esterase (Negative) U Hyaline Cast (Auto) (0-2) /LPF Urine Microscopic RBC (0-5) /HPF Urine Microscopic WBC (0-5) /HPF Ur Epithelial Cells (None Seen) /HPF Urine Bacteria (None Seen) /HPF Urine Culture Reflexed (NO) Influenza Type A Ag (NEGATIVE) Influenza Type B Ag (NEGATIVE) RSV (PCR) (NEGATIVE) SARS-CoV-2 (PCR) (NEGATIVE) Slides for Path Review YES 08/03/23 Range/Units 11:17 WBC (4.0-10.5) x10^3/uL RBC (4.1-5.4) x10^6/uL Hgb (12.0-16.0) g/dL Hct (35-47) % MCV (78-100) fL MCH (26-32) pg MCHC (32-36) g/dL RDW (11.5-14.0) % Plt Count (150-450) x10^3/uL MPV (7.5-11.0) fL Gran % (36.0-66.0) % Immature Gran % (Auto) (0.00-0.4) % Nucleat RBC Rel Count (0.00-0.1) % Eos # (Auto) (0-0.5) x10^3/uL Immature Gran # (Auto) (0.00-0.03) x10^3u/L Absolute Lymphs (auto) (1.0-4.6) x10^3/uL Absolute Monos (auto) (0.0-1.3) x10^3/uL Absolute Nucleated RBC (0.00-0.01) x10^3u/L Lymphocytes % (24.0-44.0) % Monocytes % (0.0-12.0) % Eosinophils % (0.00-5.0) % Basophils % (0.0-0.4) % Absolute Granulocytes (1.4-6.9) x10^3/uL Basophils # (0-0.4) x10^3/uL Sodium (137-145) mmol/L Potassium (3.5-5.1) mmol/L Chloride (98-107) mmol/L Carbon Dioxide (22-30) mmol/L Anion Gap (5-15) MEQ/L BUN (7-17) mg/dL Creatinine (0.52-1.04) mg/dL Estimated GFR ML/MIN Glucose (74-106) mg/dL Lactic Acid (0.4-2.0) Calcium (8.4-10.2) mg/dL Magnesium (1.6-2.3) mg/dL Total Bilirubin (0.2-1.3) mg/dL AST (14-36) U/L ALT (0-35) U/L Alkaline Phosphatase (38-126) U/L Troponin I (0.000-0.034) ng/mL Serum Total Protein (6.3-8.2) g/dL Albumin (3.5-5.0) g/dL Lipase (23-300) U/L Procalcitonin (0.030-0.080) ng/mL Free T4 (0.78-2.19) ng/dL TSH 3rd Generation (0.47-4.68) mIU/L Urine Color Yellow (Yellow) Urine Appearance Cloudy A (Clear) Urine pH 6.0 (4.6-8.0) Ur Specific [place] 1.015 (1.005-1.030) Urine Protein 100 A (Negative) Urine Glucose (UA) Negative (Negative) mg/dL Urine Ketones Trace A (Negative) Urine Blood Trace (Negative) Urine Nitrite Negative (Negative) Urine Bilirubin Negative (Negative) Urine Urobilinogen 1.0 A (0.2) mg/dL Ur Leukocyte Esterase Moderate A (Negative) U Hyaline Cast (Auto) 11-20 (0-2) /LPF Urine Microscopic RBC 0-2 (0-5) /HPF Urine Microscopic WBC 21-50 A (0-5) /HPF Ur Epithelial Cells Few (None Seen) /HPF Urine Bacteria Rare A (None Seen) /HPF Urine Culture Reflexed YES (NO) Influenza Type A Ag (NEGATIVE) Influenza Type B Ag (NEGATIVE) RSV (PCR) (NEGATIVE) SARS-CoV-2 (PCR) (NEGATIVE) Slides for Path Review - Progress Progress: pain not gone completely, re-examined Progress Note: 08/03/23 14:35 57 years old is evaluated for abdominal pain with vomiting. Patient was tachycardic with new onset A-fib RVR. She is given fluid bolus x 2, along with symptomatic treatment for pain, on reevaluation feeling better but pain is not completely resolved. Patient workup showed white count of 23, acute renal failure with creatinine of 1.8, hypokalemia of 2.8 and magnesium of 2.2. She is getting IV potassium replacement. EKG is A-fib RVR but no acute ST elevations and negative initial troponins. Chest x-ray negative for any acute cardiopulmonary findings. Patient does have UTI and given a dose of Rocephin. Patient CT showed right distal 3-4 mm partially obstructing stone with moderate hydronephrosis and also having a 4.7 cm ovarian cyst on the left side. Patient pain is more in the periumbilical and upper abdomen area. She did not have any vomiting while in the ER. After 2 bags of fluid her heart rate is still in 120s and 130s. Lactate is normal but procalcitonin of 5.1. She also has hypothyroidism with TSH of 0.015 and free T4 of 6.5. Patient has no history of hyper or hypothyroidism. This might be the reason patient is going in A-fib with RVR versus sepsis secondary to stone/UTI/dehydration. She is started on Cardizem drip as well. I have discussed with Dr. Holley, reviewed history, workup and I agree with her that patient would benefit with urology consultation to see if she needs any immediate decompression with her other markers showing sepsis. I have discussed with Dr. Toth urologjulienne, reviewed history, workup, recommended making patient n.p.o. after midnight and admission to hospitalist service at [facility] in consultation with urology. I have called [facility] transfer and patient is excepted on behalf of Dr. Deepa Madrigal physician. I would hold off on anticoagulation as patient might have to go for surgical intervention soon. 08/03/23 14:[address] Other (Dr. Holley hospitalist at [facility], Dr. Toth urologist [facility], Dr. Deepa Manaznares, ER physician r [facility]) Will see patient in: ED Counseled pt/family regarding: lab results, diagnosis, rad results Medical Desision Making - Independent Historian Additional History obtained from: Spouse - Discussion of managment Care discussed with:: specialist (Dr. Toth urologjulienne) Reviewed:: Test results Agreed on:: Treatment plan, place in obs Will see patient: in hospital - Diagnostic Testing Diagnostic test were ordered, analyzed, and reviewed by me: Yes Radiological Interpretation: Reviewed by me - Risk of complications The pt has a mod risk of morbidity or mortality based on: Need for major surgery in otherwise healthy patient The pt has a high risk of morbidity or mortality based on: Decision regarding hospitilization or escalation of hosp level of care - Departure Departure Disposition: Transfer Clinical Impression: New onset atrial fibrillation, Sepsis secondary to UTI, Hypokalemia, Acute renal failure, Hyperthyroidism Condition: Fair Critical Care Time: Yes Critical Care Time(excluding separately billable procedures): Critical 30-74 mins Referrals: BLOSSOM BRIZUELA MD [Primary Care Provider] - Follow up/PCP as directed
[2023-08-03 11:25] LABS: ADD URINE CULTURE? YES (NO); Appearance Cloudy (Clear); Bacteria Rare /HPF (None Seen); Bilirubin Negative (Negative); Blood Trace (Negative); Epithelial Cells Few /HPF (None Seen); Glucose, Urine Negative (Negative); Ketones Trace (Negative); Leukocyte Esterase Moderate (Negative); Nitrite Negative (Negative); Protein,Urine Dip 100 (Negative); RBC 0-2 /HPF (0-5); Specific Gravity 1.015 (1.005-1.030); WBC 21-50 /HPF (0-5)
[2023-08-03] MEDS ORDERED: Zofran 4 MG/2 ML VIAL ONE (11:46)
[2023-08-03] MEDS ORDERED: SUBLIMAZE 100 MCG/2 ML ONE (11:48)
[2023-08-03] MEDS ORDERED: Sodium Chloride 0.9% 1000 ML 1,000 ML ONE ×2 (11:48→12:22)
[2023-08-03 11:56] LABS: ALBUMIN 3.7 g/dL (3.5-5.0); ALKALINE PHOSPHATASE 190 U/L (38-126); BLOOD UREA NITROGEN 40 mg/dL (7-17); CHLORIDE 101 mmol/L (98-107); Calcium 9.6 mg/dL (8.4-10.2); Carbon Dioxide 20 mmol/L (22-30); Creatinine 1 1.88 mg/dL (0.52-1.04); EST GLOMERULAR FILTRATION RATE 30.6 ML/MIN; Glucose 143 mg/dL (74-106); LIPASE 108 U/L (23-300); MAGNESIUM 2.2 mg/dL (1.6-2.3); SGOT/AST 51 U/L (14-36); SGPT/ALT 76 U/L (0-35); SODIUM 134 mmol/L (137-145); TSH, 3RD Generation < 0.015 mIU/L (0.47-4.68); Total Protein 6.9 g/dL (6.3-8.2)
[2023-08-03 12:00] LABS: Potassium 2.8 mmol/L (3.5-5.1)
[2023-08-03] MEDS ORDERED: ROCEPHIN 2 Gm-D5w 50ML BAG** 2 G/50 ML IVPB IV STA (12:03)
[2023-08-03 12:13] LABS: Slide Review 1 YES
[2023-08-03] MEDS ORDERED: ROCEPHIN 2 Gm-D5w 50ML BAG** 2 G/50 ML IVPB IV ONE (12:23)
[2023-08-03] MEDS ORDERED: POTASSIUM CHLORIDE 20 mEq IN WATER 100ML 100 ML IV ONE ×2 (12:23→14:41)
[2023-08-03 12:29] LABS: INFLUENZA A NEGATIVE (NEGATIVE); INFLUENZA B NEGATIVE (NEGATIVE); RESPIRATORY SYNCTIAL VIRUS NEGATIVE (NEGATIVE); SARS-CoV-2 Xpert Express NEGATIVE (NEGATIVE)
[2023-08-03] MEDS: POTASSIUM CHLORIDE 20 mEq IN WATER 100ML 20 MEQ/100 ML BAG IV SCH ×2 (12:46→14:42)
--- NOTE | 2023-08-03 13:04 | XRAY ---
Indication: Abdominal pain, chest tightness, vomiting, and weakness. Comparison: October 17, 2022 Portable chest is inflated and clear. Heart not enlarged. Bony thorax intact again with mild degenerative changes and distal left clavicle resection. Impression: Nonacute chest with chronic bony findings.
--- NOTE | 2023-08-03 13:04 | XRAY ---
Indication: Periumbilical pain. Multiple contiguous axial images obtained through the abdomen and pelvis without contrast. Comparison: November 04, 2016 Lung bases are clear. Heart not enlarged. Noncontrasted stomach and bowel loops appear nonobstructed again with normal appendix. Enlarging 4.7 cm left ovary cyst, previously 4.2 cm. Again incidental splenomegaly today measuring 16.2 cm, smaller 1 cm splenic cyst, and 8 mm left renal angiomyolipoma. Inferior right renal calyx demonstrates new punctate calculus. Distal right ureter demonstrates new 3-4 mm calculus, approximately S1/S2 level. Right renal edema, moderate hydronephrosis, and minimal hydroureter favors partial obstructive uropathy. No free fluid/air. Remaining liver, color, pancreas, adrenal glands, urinary bladder, uterus, and aorta are unremarkable for noncontrast exam. Osseous structures intact with minimal degenerative changes throughout the spine. Impression: 1. New 3-4 mm distal right ureter calculus producing partial obstruction. Additional right renal punctate calculus. 2. Enlarging 4.7 cm left ovary cyst better evaluated with pelvic sonogram if clinically warranted. 3. Again chronic findings including splenomegaly, splenic cyst, chronic bony findings, and left renal angiomyolipoma.
[2023-08-03] MEDS ORDERED: CARDIZEM DRIP 100 MG/100 ML D5W 100 ML IV PRN (14:17)
[2023-08-03] MEDS ORDERED: CARDIZEM DRIP 100 MG/100 ML D5W 100 ML IV ONE (14:49)
[2023-08-03 16:03] VITALS: BP 100/76; PULSE 127; RESP 19; O2SAT 97
== END 2023-08-03 16:05 | disposition short-term general hospital (02) ==
LOC: ED 10:44
DX: A41.9 Sepsis, unspecified organism (principal); N39.0 Urinary tract infection, site not specified; R65.20 Severe sepsis without septic shock; N17.9 Acute kidney failure, unspecified; I48.20 Chronic atrial fibrillation, unspecified; E05.90 Thyrotoxicosis, unspecified without thyrotoxic crisis or storm; I95.9 Hypotension, unspecified; N13.2 Hydronephrosis with renal and ureteral calculous obstruction; R10.33 Periumbilical pain; R11.2 Nausea with vomiting, unspecified; R53.1 Weakness; I10 Essential (primary) hypertension; Z79.899 Other long term (current) drug therapy; Z20.828 Contact with and (suspected) exposure to other viral communicable diseases
CPT/HCPCS: 0241U; 36000; 36415; 71045; 74176; 80053; 81001; 83605; 83690; 83735; 84145; 84439; 84443; 84484; 85025; 87040; 87077; 87086; 87186; 93005; 96360; 96365; 96367; 96374; 96375; 99285; 99291; J0696; J2405; J3010; J3480

== ENCOUNTER 2023-12-30 07:35 | Emergency (ER) | payer BC ==
--- NOTE | 2023-12-30 07:47 | ERPHSYRPT ---
- History of Present Illness Time Seen by Provider: 12/30/23 07:38 Historian: patient, family Exam Limitations: no limitations Physician History: Pt has Hx of Afib tx with zeferino and Luis Alberto and following with director speech. She developed CP this past week and saw her provider but declined to be admitted and had relief for a while with Isorbid . SOme headache potentially as side effect. Some N and came in today to have this checked. Chest clear ht irreg without M. Abd soft nontender without peritoneal signs or masses . Normal neuro exam and mental status. Ext without edema. Discussed with pt and available family risks/benefits of lab - CBC, CMP, zachery. lipase , Trop BNP, UA, D DImer, and CXR and EKG, NTG , pepcid, protonix, and ASA and they wish to proceed so these are ordered. Results discussed with pt and family. Timing/Duration: day(s) Activities at Onset: none Quality: burning, fullness, pressure, stabbing, tightness Location: substernal Chest Pain Radiation: no radiation Severity of Pain-Max: moderate Severity of Pain-Current: moderate Modifying Factors: Improves With: nitroglycerin Associated Symptoms: nausea, fatigue, headache Prior Chest Pain/Cardiac Workup: recently seen/treated Nitro Today/Relief: 0.4 mg x 1, provided by ED Aspirin Treatment Today: 81 mg x 4, provided by ED Allergies/Adverse Reactions: erythromycin base Allergy (Verified 12/30/23 07:46) metoclopramide [From Reglan] Allergy (Verified 12/30/23 07:46) Sulfa (Sulfonamide Antibiotics) Allergy (Verified 12/30/23 07:46) Home Medications: Cholecalciferol (Vitamin D3) [Vitamin D] 2,000 unit PO DAILY 11/04/16 [History] Cyanocobalamin/Folic Acid [Vitamin C03-Ahsdt Acid Tablet] 1 each PO DAILY 11/04/16 [History] Lysine 1,000 mg PO DAILY 11/04/16 [History] Escitalopram Oxalate 20 mg PO DAILY 09/02/22 [History] Methylphenidate HCl [Methylphenidate ER] 20 mg PO DAILY 09/02/22 [History] Solriamfetol HCl [Sunosi] 150 mg PO DAILY 04/30/23 [History] Diltiazem HCl Cd [Cardizem CD ] 180 mg PO DAILY 12/30/23 [History] Isosorbide Mononitrate [Isosorbide Mononitrate ER] 30 mg PO DAILY 12/30/23 [Hist ory] Linaclotide [Linzess] 72 mg PO DAILY 12/30/23 [History] Losartan Potassium 50 mg [Cozaar 50 MG] 50 mg PO DAILY 12/30/23 [History] Omeprazole 20 mg PO DAILY 12/30/23 [History] armodafiniL [Armodafinil] 150 mg PO DAILY 12/30/23 [History] Hx Tetanus, Diphtheria Vaccination/Date Given: Yes (2014) Hx Influenza Vaccination/Date Given: Yes (2021) Hx Pneumococcal Vaccination/Date Given: Yes (2021) - Review of Systems Constitutional: Fatigue, No Fever, No Chills Eyes: No Symptoms Ears, Nose, & Throat: No Symptoms Respiratory: No Cough, No Dyspnea Cardiac: Chest Pain, No Edema, No Syncope Abdominal/Gastrointestinal: Nausea, No Abdominal Pain, No Vomiting, No Diarrhea Genitourinary Symptoms: No Dysuria Musculoskeletal: No Back Pain, No Neck Pain Skin: No Symptoms, No Rash Neurological: No Dizziness, No Focal Weakness, No Sensory Changes Psychological: No Symptoms Endocrine: No Symptoms Hematologic/Lymphatic: No Symptoms Immunological/Allergic: No Symptoms All Other Systems: Reviewed and Negative - Past Medical History Pertinent Past Medical History: Yes Neurological History: Migraines Cardiac History: Hypertension Respiratory History: No Pertinent History Endocrine Medical History: No Pertinent History Musculoskeletal History: Osteoarthritis GI Medical History: GERD Psycho-Social History: Depression Other Medical History: NARCOLEPSY - Past Surgical History Past Surgical History: Yes Musculoskeletal: Orthopedic Surgery Other Surgical History: r shoulder surgery, right and left and knee surgery. right bicep - Social History Smoking Status: Never smoker Exposure to second hand smoke: No Drug Use: none Patient Lives Alone: No - Nursing Vital Signs Nursing Vital Signs: Initial Vital Signs Temperature 97.1 F 12/30/23 07:37 Pulse Rate 64 12/30/23 07:37 Respiratory Rate 22 12/30/23 07:37 Blood Pressure 151/97 12/30/23 07:37 O2 Sat by Pulse Oximetry 98 12/30/23 07:37 Pain Scale Pain Intensity 3 - Physical Exam General Appearance: no apparent distress, alert Eye Exam: PERRL/EOMI, eyes nml inspection Ears, Nose, Throat Exam: normal ENT inspection, moist mucous membranes Neck Exam: normal inspection, non-tender, supple, full range of motion Respiratory Exam: normal breath sounds, lungs clear, No respiratory distress Cardiovascular Exam: normal heart sounds, irregular Gastrointestinal/Abdomen Exam: soft, No tenderness, No mass Pelvic Exam: deferred Rectal Exam: deferred Back Exam: normal inspection, No CVA tenderness, No vertebral tenderness Extremity Exam: normal inspection, normal range of motion Neurologic Exam: alert, oriented x 3, cooperative, normal mood/affect, sensation nml, No motor deficits Skin Exam: normal color, warm, dry SpO2 Interpretation: normal SpO2: 96 O2 Delivery: Room Air - Course Nursing assessment & vital signs reviewed: Yes EKG Interpreted by Me: Sinus Rhythm, NORMAL AXIS, NORMAL INTERVALS, NORMAL QRS, NORMAL ST-T - Radiology Exams Chest X-ray Interpretation: Interpreted by me, Reviewed by me, No Infiltrates Ordered Tests: Active Orders 24 hr Category Date Time Status Speech Writer STAT Care 12/30/23 07:52 Active EKG-ER Only STAT Care 12/30/23 07:50 Active IV Insertion STAT Care 12/30/23 07:50 Active Pulse Oximetry (ED) STAT Care 12/30/23 07:50 Active CHEST 1 VIEW (PORTABLE) Stat Exams 12/30/23 07:51 Completed AMYLASE Stat Lab 12/30/23 08:00 Completed CBC W DIFF Stat Lab 12/30/23 08:00 Completed CMP Stat Lab 12/30/23 08:00 Completed D-DIMER QUANTITATIVE Stat Lab 12/30/23 08:00 Completed LIPASE Stat Lab 12/30/23 08:00 Completed Lactic Acid Stat Lab 12/30/23 08:00 Completed NT PRO BNPII Stat Lab 12/30/23 08:00 Completed TROPONIN Q4H Lab 12/30/23 08:00 Completed TROPONIN Q4H Lab 12/30/23 11:48 Completed TROPONIN Q4H Lab 12/30/23 16:00 Ordered UA W/RFX UR CULTURE Stat Lab 12/30/23 08:15 Completed Medication Summary Generic Name Dose Route Start Last Admin Trade Name Freq PRN Reason Stop Dose Admin Sodium Chloride 1,000 mls @ 50 mls/hr 12/30/23 08:00 12/30/23 08:43 Sodium Chloride 0.9% 1000 Ml IV 01/29/24 07:59 50 mls/hr .Q20H DAYRON Administration Discontinued Medications Generic Name Dose Route Start Last Admin Trade Name Марина PRN Reason Stop Dose Admin Aspirin 324 mg 12/30/23 07:50 12/30/23 08:41 Aspirin 81 Mg Tab.Chew PO 12/30/23 07:51 324 mg STAT ONE Administration Aspirin Confirm 12/30/23 08:39 Aspirin 81 Mg Tab.Chew Administered 12/30/23 08:40 Dose 405 mg .ROUTE .STK-MED ONE Famotidine 20 mg 12/30/23 07:50 12/30/23 08:43 Famotidine 20 Mg/1 Vial IV 12/30/23 07:51 20 mg STAT ONE Administration Famotidine Confirm 12/30/23 08:39 Famotidine 20 Mg/1 Vial Administered 12/30/23 08:40 Dose 20 mg IV .STK-MED ONE Nitroglycerin 0.4 mg 12/30/23 10:10 12/30/23 10:29 Nitroglycerin 0.4 Mg (Ed) 0.4 Mg Tab.Subl SL 12/30/23 10:11 0.4 mg STAT ONE Administration Nitroglycerin Confirm 12/30/23 10:28 Nitroglycerin 0.4 Mg (Ed) 0.4 Mg Tab.Subl Administered 12/30/23 10:29 Dose 0.4 mg SL .STK-MED ONE Nitroglycerin 1 gm 12/30/23 12:42 12/30/23 12:43 Nitroglycerin 1 Gm Packet TOP 12/30/23 12:43 1 gm STAT ONE Administration Nitroglycerin Confirm 12/30/23 12:43 Nitroglycerin 1 Gm Packet Administered 12/30/23 12:44 Dose 1 gm .ROUTE .STK-MED ONE Ondansetron HCl 4 mg 12/30/23 07:50 12/30/23 08:43 Ondansetron Hcl 4 Mg/2 Ml Vial IV 12/30/23 07:51 4 mg STAT ONE Administration Ondansetron HCl Confirm 12/30/23 08:39 Ondansetron Hcl 4 Mg/2 Ml Vial Administered 12/30/23 08:40 Dose 4 mg .ROUTE .STK-MED ONE Pantoprazole Sodium 40 mg 12/30/23 07:50 12/30/23 08:42 Pantoprazole 40 Mg Vial IV 12/30/23 07:51 40 mg STAT ONE Administration Pantoprazole Sodium Confirm 12/30/23 08:39 Pantoprazole 40 Mg Vial Administered 12/30/23 08:40 Dose 40 mg IV [facility] ONE Lab/Rad Data: Laboratory Result Diagrams 12/30/23 08:00 12/30/23 08:00 Laboratory Results 12/30/23 12/30/23 12/30/23 Range/Units 11:48 08:15 08:00 WBC (3.98-10.04) x10^3/uL RBC (3.93-5.22) x10^6/uL Hgb (11.2-15.7) g/dL Hct (34.1-44.9) % MCV (79.4-94.8) fL MCH (25.6-32.2) pg MCHC (32.2-35.5) g/dL RDW (11.7-14.4) % Plt Count (182-369) x10^3/uL MPV (9.4-12.3) fL Gran % (34.0-71.1) % Immature Gran % (Auto) (0.001-0.429) % Nucleat RBC Rel Count (0.00-0.2) % Eos # (Auto) (0.04-0.36) x10^3/uL Immature Gran # (Auto) (0.001-0.031) x10^3u/L Absolute Lymphs (auto) (1.18-3.74) x10^3/uL Absolute Monos (auto) (0.24-0.86) x10^3/uL Absolute Nucleated RBC (0.00-0.012) x10^3u/L Lymphocytes % (19.3-51.7) % Monocytes % (4.7-12.5) % Eosinophils % (0.7-5.8) % Basophils % (0.1-1.2) % Absolute Granulocytes (1.56-6.13) x10^3/uL Basophils # (0.01-0.08) x10^3/uL D-Dimer (0.0-0.50) mg/L Sodium (135-145) mmol/L Potassium (3.5-5.1) mmol/L Chloride (98-107) mmol/L Carbon Dioxide (22-30) mmol/L Anion Gap (5-15) MEQ/L BUN (7-17) mg/dL Creatinine (0.52-1.04) mg/dL Estimated GFR ML/MIN Glucose (74-106) mg/dL Lactic Acid (0.4-2.0) Calcium (8.4-10.2) mg/dL Total Bilirubin (0.2-1.3) mg/dL AST (14-36) U/L ALT (0-35) U/L Alkaline Phosphatase (38-126) U/L Troponin I < 0.012 (0.000-0.033) ng/mL NT-Pro-B Natriuret Pep 86.0 (<300) pg/mL Serum Total Protein (6.3-8.2) g/dL Albumin (3.5-5.0) g/dL Amylase (30-110) U/L Lipase (23-300) U/L Urine Color Yellow (Yellow) Urine Appearance Clear (Clear) Urine pH 7.0 (4.6-8.0) Ur Specific [place] <=1.005 (1.005-1.030) Urine Protein Negative (Negative) Urine Glucose (UA) Negative (Negative) mg/dL Urine Ketones Negative (Negative) Urine Blood Negative (Negative) Urine Nitrite Negative (Negative) Urine Bilirubin Negative (Negative) Urine Urobilinogen 0.2 (0.2) mg/dL Ur Leukocyte Esterase Trace A (Negative) U Hyaline Cast (Auto) NONE SEEN (0-2) /LPF Urine Microscopic RBC 0-2 (0-5) /HPF Urine Microscopic WBC 0-2 (0-5) /HPF Ur Epithelial Cells None Seen (None Seen) /HPF Urine Bacteria None Seen (None Seen) /HPF Urine Culture Reflexed NO (NO) 12/30/23 12/30/23 12/30/23 Range/Units 08:00 08:00 08:00 WBC (3.98-10.04) x10^3/uL RBC (3.93-5.22) x10^6/uL Hgb (11.2-15.7) g/dL Hct (34.1-44.9) % MCV (79.4-94.8) fL MCH (25.6-32.2) pg MCHC (32.2-35.5) g/dL RDW (11.7-14.4) % Plt Count (182-369) x10^3/uL MPV (9.4-12.3) fL Gran % (34.0-71.1) % Immature Gran % (Auto) (0.001-0.429) % Nucleat RBC Rel Count (0.00-0.2) % Eos # (Auto) (0.04-0.36) x10^3/uL Immature Gran # (Auto) (0.001-0.031) x10^3u/L Absolute Lymphs (auto) (1.18-3.74) x10^3/uL Absolute Monos (auto) (0.24-0.86) x10^3/uL Absolute Nucleated RBC (0.00-0.012) x10^3u/L Lymphocytes % (19.3-51.7) % Monocytes % (4.7-12.5) % Eosinophils % (0.7-5.8) % Basophils % (0.1-1.2) % Absolute Granulocytes (1.56-6.13) x10^3/uL Basophils # (0.01-0.08) x10^3/uL D-Dimer < 0.19 (0.0-0.50) mg/L Sodium 139 (135-145) mmol/L Potassium 3.9 (3.5-5.1) mmol/L Chloride 108 H (98-107) mmol/L Carbon Dioxide 24 (22-30) mmol/L Anion Gap 11.3 (5-15) MEQ/L BUN 15 (7-17) mg/dL Creatinine 0.80 (0.52-1.04) mg/dL Estimated GFR 84.8 ML/MIN Glucose 100 (74-106) mg/dL Lactic Acid (0.4-2.0) Calcium 9.7 (8.4-10.2) mg/dL Total Bilirubin 0.40 (0.2-1.3) mg/dL AST 23 (14-36) U/L ALT 31 (0-35) U/L Alkaline Phosphatase 127 H (38-126) U/L Troponin I < 0.012 (0.000-0.033) ng/mL NT-Pro-B Natriuret Pep (<300) pg/mL Serum Total Protein 7.0 (6.3-8.2) g/dL Albumin 4.4 (3.5-5.0) g/dL Amylase 75 (30-110) U/L Lipase 189 (23-300) U/L Urine Color (Yellow) Urine Appearance (Clear) Urine pH (4.6-8.0) Ur Specific [place] (1.005-1.030) Urine Protein (Negative) Urine Glucose (UA) (Negative) mg/dL Urine Ketones (Negative) Urine Blood (Negative) Urine Nitrite (Negative) Urine Bilirubin (Negative) Urine Urobilinogen (0.2) mg/dL Ur Leukocyte Esterase (Negative) U Hyaline Cast (Auto) (0-2) /LPF Urine Microscopic RBC (0-5) /HPF Urine Microscopic WBC (0-5) /HPF Ur Epithelial Cells (None Seen) /HPF Urine Bacteria (None Seen) /HPF Urine Culture Reflexed (NO) 12/30/23 12/30/23 Range/Units 08:00 08:00 WBC 7.6 (3.98-10.04) x10^3/uL RBC 4.45 (3.93-5.22) x10^6/uL Hgb 12.4 (11.2-15.7) g/dL Hct 37.9 (34.1-44.9) % MCV 85.2 (79.4-94.8) fL MCH 27.9 (25.6-32.2) pg MCHC 32.7 (32.2-35.5) g/dL RDW 13.2 (11.7-14.4) % Plt Count 246 (182-369) x10^3/uL MPV 10.2 (9.4-12.3) fL Gran % 53.9 (34.0-71.1) % Immature Gran % (Auto) 0.3 (0.001-0.429) % Nucleat RBC Rel Count 0.0 (0.00-0.2) % Eos # (Auto) 0.26 (0.04-0.36) x10^3/uL Immature Gran # (Auto) 0.02 (0.001-0.031) x10^3u/L Absolute Lymphs (auto) 2.53 (1.18-3.74) x10^3/uL Absolute Monos (auto) 0.65 (0.24-0.86) x10^3/uL Absolute Nucleated RBC 0.00 (0.00-0.012) x10^3u/L Lymphocytes % 33.4 (19.3-51.7) % Monocytes % 8.6 (4.7-12.5) % Eosinophils % 3.4 (0.7-5.8) % Basophils % 0.4 (0.1-1.2) % Absolute Granulocytes 4.09 (1.56-6.13) x10^3/uL Basophils # 0.03 (0.01-0.08) x10^3/uL D-Dimer (0.0-0.50) mg/L Sodium (135-145) mmol/L Potassium (3.5-5.1) mmol/L Chloride (98-107) mmol/L Carbon Dioxide (22-30) mmol/L Anion Gap (5-15) MEQ/L BUN (7-17) mg/dL Creatinine (0.52-1.04) mg/dL Estimated GFR ML/MIN Glucose (74-106) mg/dL Lactic Acid 0.9 (0.4-2.0) Calcium (8.4-10.2) mg/dL Total Bilirubin (0.2-1.3) mg/dL AST (14-36) U/L ALT (0-35) U/L Alkaline Phosphatase (38-126) U/L Troponin I (0.000-0.033) ng/mL NT-Pro-B Natriuret Pep (<300) pg/mL Serum Total Protein (6.3-8.2) g/dL Albumin (3.5-5.0) g/dL Amylase (30-110) U/L Lipase (23-300) U/L Urine Color (Yellow) Urine Appearance (Clear) Urine pH (4.6-8.0) Ur Specific [place] (1.005-1.030) Urine Protein (Negative) Urine Glucose (UA) (Negative) mg/dL Urine Ketones (Negative) Urine Blood (Negative) Urine Nitrite (Negative) Urine Bilirubin (Negative) Urine Urobilinogen (0.2) mg/dL Ur Leukocyte Esterase (Negative) U Hyaline Cast (Auto) (0-2) /LPF Urine Microscopic RBC (0-5) /HPF Urine Microscopic WBC (0-5) /HPF Ur Epithelial Cells (None Seen) /HPF Urine Bacteria (None Seen) /HPF Urine Culture Reflexed (NO) - Progress Progress: improved, re-examined Air Movement: good Progress Note: 12/30/23 10:45 pt CP relieved completely with NTG in ER. I advised her to let us consult with telecardiology and she agrees. 12/30/23 13:18 Cardiology called back and agreed best for transfer. Pt agrees 12/30/23 13:[address] Che at [facility] and they will accept for observation . Blood Culture(s) Obtained: No Antibiotics given: No Discussed with Dr.: Other (Dr. Che [facility] ) Will see patient in: ED Counseled pt/family regarding: lab results, diagnosis, need for follow-up, rad results Medical Desision Making - Independent Historian Additional History obtained from: Family - Discussion of managment Care discussed with:: specialist Reviewed:: Test results, Need for additional workup Agreed on:: Treatment plan, need for follow-up, decision to admit Will see patient: in ED - Diagnostic Testing Diagnostic test were ordered, analyzed, and reviewed by me: Yes Radiological Interpretation: Interpreted by me, Reviewed by me - Risk of complications The pt has a mod risk of morbidity or mortality based on: Need for prescription drug management The pt has a high risk of morbidity or mortality based on: Decision regarding hospitilization or escalation of hosp level of care - Departure Departure Disposition: Transfer Clinical Impression: New-onset angina Condition: Good Critical Care Time: No Referrals: BLOSSOM BRIZUELA MD [Primary Care Provider] - Follow up/PCP as directed
[2023-12-30 07:56] VITALS: TEMP 97.1
[2023-12-30 08:14] LABS: Absolute Neutrophil Ct (ANC) 4.09 x10^3/uL (1.56-6.13); BASOPHIL % 0.4 % (0.1-1.2); Basophil (Absolute #) 0.03 x10^3/uL (0.01-0.08); Eosinophil % 3.4 % (0.7-5.8); Eosinophil (Absolute #) 0.26 x10^3/uL (0.04-0.36); Hematocrit 37.9 % (34.1-44.9); Hemoglobin 12.4 g/dL (11.2-15.7); IMMATURE GRAN # 0.02 x10^3u/L (0.001-0.031); IMMATURE GRAN % 0.3 % (0.001-0.429); Lymphocyte (Absolute #) 2.53 x10^3/uL (1.18-3.74); Lymphocytes % 33.4 % (19.3-51.7); Mean Cell Volume 85.2 fL (79.4-94.8); Mean Corpuscular Hemoglobin 27.9 pg (25.6-32.2); Mean Corpuscular Hgb Concent. 32.7 g/dL (32.2-35.5); Mean Platelet Volume 10.2 fL (9.4-12.3); Monocyte (Absolute #) 0.65 x10^3/uL (0.24-0.86); Monocytes % 8.6 % (4.7-12.5); Neutrophil % 53.9 % (34.0-71.1); Platelet Count 246 x10^3/uL (182-369); Red Blood Count 4.45 x10^6/uL (3.93-5.22); Red Cell Distribution Width 13.2 % (11.7-14.4); White Blood Count 7.6 x10^3/uL (3.98-10.04)
[2023-12-30 08:28] LABS: ALBUMIN 4.4 g/dL (3.5-5.0); ANION GAP 11.3 MEQ/L (5-15); BILIRUBIN,TOTAL 0.4 mg/dL (0.2-1.3); Calcium 9.7 mg/dL (8.4-10.2); Creatinine 1 0.8 mg/dL (0.52-1.04); EST GLOMERULAR FILTRATION RATE 84.8 ML/MIN; Potassium 3.9 mmol/L (3.5-5.1)
[2023-12-30 08:33] LABS: Appearance Clear (Clear); Bacteria None Seen /HPF (None Seen); Bilirubin Negative (Negative); Blood Negative (Negative); Epithelial Cells None Seen /HPF (None Seen); Glucose, Urine Negative (Negative); Hyaline Casts NONE SEEN /LPF (0-2); Ketones Negative (Negative); Leukocyte Esterase Trace (Negative); Nitrite Negative (Negative); Protein,Urine Dip Negative (Negative); RBC 0-2 /HPF (0-5); Specific Gravity <=1.005 (1.005-1.030); Urobilinogen 0.2 mg/dL (0.2); WBC 0-2 /HPF (0-5)
[2023-12-30 08:38] LABS: ADD URINE CULTURE? NO (NO)
[2023-12-30] MEDS ORDERED: PROTONIX 40 MG IV IV ONE (08:39)
[2023-12-30] MEDS ORDERED: BABY ASPIRIN 81 MG CHEW ONE (08:39)
[2023-12-30] MEDS ORDERED: Pepcid 20 MG VIAL IV ONE (08:39)
[2023-12-30] MEDS ORDERED: Zofran 4 MG/2 ML VIAL ONE (08:39)
[2023-12-30] MEDS ORDERED: Sodium Chloride 0.9% 1000 ML 1,000 ML ONE (08:39)
[2023-12-30] MEDS: BABY ASPIRIN 81 MG CHEW PO ONE (08:41)
[2023-12-30] MEDS: PROTONIX 40 MG IV IV ONE (08:42)
[2023-12-30] MEDS: Sodium Chloride 0.9% 1000 ML 1,000 ML IV SCH (08:43)
[2023-12-30] MEDS: Pepcid 20 MG VIAL IV ONE (08:43)
[2023-12-30] MEDS: Zofran 4 MG/2 ML VIAL IV ONE (08:43)
[2023-12-30] MEDS ORDERED: Nitrostat 0.4 MG (ED) SL ONE (10:28)
[2023-12-30] MEDS: Nitrostat 0.4 MG (ED) SL ONE (10:29)
[2023-12-30 12:06] VITALS: O2SAT 96
[2023-12-30] MEDS ORDERED: NITRO-BID 2% UD PACKETS ONE (12:43)
[2023-12-30] MEDS: NITRO-BID 2% UD PACKETS TOP ONE (12:43)
[2023-12-30 13:08] VITALS: BP 145/85; PULSE 67; RESP 21
--- NOTE | 2023-12-30 13:24 | XRAY ---
Indication: Chest pain. Comparison: August 03, 2023 Portable apical lordotic chest again demonstrates normal heart and lungs. Bony thorax intact again with mild degenerative changes and left shoulder surgery. No new/acute findings.
== END 2023-12-30 13:59 | disposition short-term general hospital (02) ==
LOC: ED 07:35
DX: I20.9 Angina pectoris, unspecified (principal); I10 Essential (primary) hypertension; Z79.899 Other long term (current) drug therapy
CPT/HCPCS: 36000; 36415; 71045; 80053; 81001; 82150; 83605; 83690; 83880; 84484; 85025; 85379; 93005; 93041; 94760; 96374; 96375; 99284; J2405; A9270-GY